=== PATIENT | male | born 1955 | race Caucasian/White ===

== ENCOUNTER 2021-11-18 07:28 | Day surgery (SDC) | payer MEDICARE ==
[~2021-11-18] VITALS: Ht 177.8 cm; Wt 61.8 kg
[2021-11-18 07:45] VITALS: BP 122/69; PULSE 72; TEMP 97.8
[2021-11-18] MEDS ORDERED: COREG 25MG25 MG/TAB PO (07:48)
[2021-11-18] MEDS ORDERED: PROTONIX 40MG T40 MG PO (07:49)
[2021-11-18] MEDS ORDERED: NORVASC 10MG10 MG PO (07:49)
[2021-11-18] MEDS ORDERED: LIPITOR20 MG PO (07:50)
[2021-11-18] MEDS ORDERED: PROSVENT PO (07:51)
[2021-11-18] MEDS ORDERED: MULTI VITAMINS1 TAB PO (07:51)
[2021-11-18] MEDS ORDERED: MASON NATURAL1200 MG PO (07:52)
[2021-11-18] MEDS ORDERED: ASPIRIN E.C. 8181 MG PO (07:52)
[2021-11-18 09:25] VITALS: BP 105/62; PULSE 62
--- NOTE | 2021-11-18 09:25 | NUR ---
Patient returns to [facility] [address] per cart and transfers from cart to recliner with two person assist. IV fluids infusing. Temp 97.0 and room air sats 100%. Denies nausea or abdominal pain. Given water to drink.
[2021-11-18 09:40] VITALS: BP 110/64; PULSE 50
--- NOTE | 2021-11-18 09:40 | NUR ---
More awake now and eating chocolate pudding.
[2021-11-18 09:55] VITALS: BP 103/80; PULSE 56
--- NOTE | 2021-11-18 09:55 | NUR ---
IV discontinued and site is free of redness or swelling. Tolerated snack and water. Dresses self.
--- NOTE | 2021-11-18 10:47 | NUR ---
Dr. Pierce in the room talking with the patient and all questions answered. Shandra notifief of dismissal R
--- NOTE | 2021-11-18 10:50 | NUR ---
Dismissal instructions given and signed. Patient voices understanding of these.
--- NOTE | 2021-11-18 11:05 | NUR ---
Patient dismissed to home driven by friend and assisted into vehicle with dismissal instructions in hand. Taken to vehicle per wheelchair.
== END 2021-11-18 11:05 | disposition home or self-care (01) ==
LOC: SDCO 07:28
DX: Z12.11 Encounter for screening for malignant neoplasm of colon (principal); D12.5 Benign neoplasm of sigmoid colon; D12.2 Benign neoplasm of ascending colon; K57.30 Diverticulosis of large intestine without perforation or abscess without bleeding
CPT/HCPCS: J2704; J7030

== ENCOUNTER → 2022-05-18 | Outpatient (CLI) | payer MEDICARE, OTHER ==
[~2022-05-18] VITALS: Ht 177.8 cm; Wt 61.0 kg
[~2022-05-18] MED LIST: ASPIRIN E.C. 8181 MG PO; COREG 25MG25 MG/TAB PO; LIPITOR20 MG PO; MASON NATURAL1200 MG PO; MULTI VITAMINS1 TAB PO; NORVASC 10MG10 MG PO; PROSVENT PO; PROTONIX 40MG T40 MG PO
[2022-05-18 13:12] VITALS: BP 119/73; PULSE 60; TEMP 97.7
[2022-05-18 14:25] VITALS: BP 160/77; PULSE 57
== END ==
LOC: COL.RAD 12:48
DX: M48.061 Spinal stenosis, lumbar region without neurogenic claudication (principal)
CPT/HCPCS: J3301

== ENCOUNTER → 2022-06-09 | Outpatient (CLI) | payer MEDICARE, OTHER ==
[~2022-06-09] VITALS: Ht 177.8 cm; Wt 62.1 kg
[2022-06-09 11:40] VITALS: BP 144/85; PULSE 58; TEMP 97.8
[2022-06-09 13:00] VITALS: BP 146/73; PULSE 57
== END ==
LOC: COL.RAD 11:12
DX: M48.062 Spinal stenosis, lumbar region with neurogenic claudication (principal)
CPT/HCPCS: J3301